=== PATIENT | male | born 1955 | race Caucasian/White ===

== ENCOUNTER 2018-09-26 08:30 | Day surgery (SDC) | payer BC ==
[2018-09-26] MEDS ORDERED: ACETAZOLAMIDE 250 MG PO ONE (08:39)
[2018-09-26] MEDS: CYCLOPENTOLATE 1% SOL ONE ×2 (08:55→09:08)
[2018-09-26] MEDS: PROPARACAINE HCL 0.5% OPHTHALMIC SOL ONE ×3 (08:55→09:42)
[2018-09-26] MEDS: KETOROLAC 0.5% OPTH 60 DROP SOL ONE ×2 (08:56→09:08)
[2018-09-26] MEDS: PHENYLEPHRINE HCL 10% OPHTHAL SOL ONE ×2 (08:56→09:07)
[2018-09-26] MEDS ORDERED: FENTANYL 100MCG/2ML SOL ONE (09:01)
[2018-09-26] MEDS ORDERED: MIDAZOLAM 2 MG/2 ML SOL ONE (09:02)
[2018-09-26] MEDS ORDERED: POVIDONE IODINE 5% SOL ONE (09:37)
[2018-09-26] MEDS ORDERED: BSS 500 ML 500 ML IR ONE (09:37)
[2018-09-26] MEDS ORDERED: LIDOCAINE HCL 1% MPF 30 SOL ONE (09:37)
[2018-09-26] MEDS: IMPRIMIS ONE ×2 (09:54→09:59)
[2018-09-26 10:09] VITALS: O2SAT 95
== END 2018-09-26 10:30 | disposition home or self-care (01) ==
LOC: SURG 08:30
PROVIDERS: ATTEND Ophthalmology
DX: H25.89 Other age-related cataract (principal)
CPT/HCPCS: J2250; J3010; A9270-GY; J2001

== ENCOUNTER 2018-10-24 06:00 | Day surgery (SDC) | payer BC ==
[~2018-10-24 06:00] MED LIST: ACETAZOLAMIDE 250 MG PO ONE
[2018-10-24] MEDS: CYCLOPENTOLATE 1% SOL ONE ×2 (06:14→06:27)
[2018-10-24] MEDS: PHENYLEPHRINE HCL 10% OPHTHAL SOL ONE ×2 (06:14→06:26)
[2018-10-24] MEDS: TETRACAINE HCL 0.5 % 1 DROP SOL ONE ×2 (06:14→06:26)
[2018-10-24] MEDS: KETOROLAC 0.5% OPTH 60 DROP SOL ONE ×2 (06:15→06:27)
[2018-10-24] MEDS ORDERED: FENTANYL 100MCG/2ML SOL ONE (06:27)
[2018-10-24] MEDS ORDERED: MIDAZOLAM 2 MG/2 ML SOL ONE (06:27)
[2018-10-24] MEDS ORDERED: TETRACAINE HCL 0.5 % 1 DROP SOL ONE (07:00)
[2018-10-24] MEDS ORDERED: LIDOCAINE HCL 1% MPF 30 SOL ONE (07:00)
[2018-10-24] MEDS ORDERED: POVIDONE IODINE 5% SOL ONE (07:00)
[2018-10-24] MEDS ORDERED: BSS 500 ML 500 ML IR ONE (07:00)
[2018-10-24] MEDS ORDERED: IMPRIMIS ONE (07:08)
[2018-10-24 08:12] VITALS: RESP 20; TEMP 97
[2018-10-24 08:20] VITALS: BP 106/77; PULSE 74; O2SAT 97
== END 2018-10-24 08:30 | disposition home or self-care (01) ==
LOC: SURG 06:00
PROVIDERS: ATTEND Ophthalmology
DX: H25.89 Other age-related cataract (principal)
CPT/HCPCS: 93005; J2250; J3010; A9270-GY; J2001